=== PATIENT | male | born 1995 | race Caucasian/White ===

== ENCOUNTER 2019-03-03 16:30 | Emergency (ER) | payer OTHER ==
[~2019-03-03] VITALS: Ht 193 cm; Wt 112.2 kg
[2019-03-03 17:20] LABS: BASO % 0.6 % (0.0-1.0); EOS # 0.1 10^3/uL (0.0-0.5); EOS % 2.8 % (0.0-3.0); HEMATOCRIT 41.4 % (42.0-52.0); HEMOGLOBIN 14.5 g/dl (13.5-17.5); LYMPH # 1.9 10^3/uL (1.5-5.0); LYMPH % 37.6 % (24.0-44.0); MEAN CORPUSCULAR HEMOGLOBIN 32.6 pg (27.0-33.0); MONO # 0.4 10^3/uL (0.0-0.8); MONO % 7.1 % (0.0-5.0); NEUTROPHILS # 2.5 10^3/uL (1.5-8.5); NEUTROPHILS % 51.7 % (36.0-66.0); PLATELET COUNT, AUTOMATED 208 10^3/uL (150-450); RED BLOOD COUNT 4.45 10^6/uL (4.30-6.10); WHITE BLOOD COUNT 4.9 10^3/uL (4.0-10.0)
--- NOTE | 2019-03-03 17:54 | REP ---
HISTORY: Chest pain. COMPARISON: None. FINDINGS: The superior mediastinal structures are midline. The cardiac silhouette is unremarkable in size, shape and position. The diaphragmatic surfaces of the lungs are regular and the costophrenic angles are clear. The pulmonary shell are clear. The imaged osseous structures are intact. IMPRESSION: There is no acute cardiopulmonary disease. Electronically Signed by Yoel Ahn DO 03/03/2019 06:16 P
[2019-03-03 17:55] LABS: ALBUMIN 4.1 GM/DL (3.2-5.2); ALT/SGPT 32 U/L (12-78); BILIRUBIN,DIRECT 0.1 MG/DL (0.0-0.2); BILIRUBIN,TOTAL 0.5 MG/DL (0.2-1.0); BLOOD UREA NITROGEN 13 MG/DL (7-18); CARBON DIOXIDE LEVEL 28 MEQ/L (21-32); CHLORIDE LEVEL 106 MEQ/L (98-107); CK-MB VALUE MASS < 1.0 NG/ML (<3.6); CPK CREATINE PHOSPHOKINASE 74 U/L (39-308); CREATININE FOR GFR 1.03 MG/DL (0.70-1.30); GLOMERULAR FILTRATION RATE > 60.0 (>60); GLUCOSE, FASTING 83 MG/DL (70-100); LIPASE 69 U/L (73-393); MB/CK RELATIVE INDEX 1.35 (< OR =4); POTASSIUM SERUM 4.5 MEQ/L (3.5-5.1); SODIUM LEVEL 141 MEQ/L (136-145); TOTAL PROTEIN 6.7 GM/DL (6.4-8.2); TROPONIN I < 0.02 NG/ML (< 0.10); URIC ACID 7.1 MG/DL (3.5-7.2)
[2019-03-03 18:00] LABS: ERYTHROCYTE SEDIMENTATION RATE 3 mm/hr (0-15)
[2019-03-03 19:15] VITALS: BP 131/73
--- NOTE | 2019-03-04 05:52 | ECGEPIP ---
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
== END 2019-03-03 19:36 | disposition home or self-care (01) ==
LOC: M ED 16:30
DX: R07.89 Other chest pain (principal)

== ENCOUNTER 2019-05-16 12:51 | Emergency (ER) | payer OTHER ==
[~2019-05-16] VITALS: Ht 188 cm; Wt 115.6 kg
--- NOTE | 2019-05-16 14:58 | REP ---
CHEST, TWO VIEWS: There is no evidence of acute infiltrate. No pleural effusion is seen. The heart is normal in size. The mediastinal silhouette is unremarkable. The visualized osseous structures are intact. IMPRESSION: No acute pulmonary disease. Electronically Signed by Anuel Olivier MD 05/16/2019 03:01 P
[2019-05-16 15:04] LABS: BASO % 0.6 % (0.0-1.0); EOS # 0.1 10^3/uL (0.0-0.5); EOS % 1.9 % (0.0-3.0); HEMATOCRIT 48.3 % (42.0-52.0); HEMOGLOBIN 16.4 g/dl (13.5-17.5); LYMPH # 1.7 10^3/uL (1.5-5.0); LYMPH % 35.1 % (24.0-44.0); MEAN CORPUSCULAR HEMOGLOBIN 31.6 pg (27.0-33.0); MEAN CORPUSCULAR VOLUME 93.1 fl (80.0-96.0); MONO # 0.3 10^3/uL (0.0-0.8); MONO % 6.5 % (0.0-5.0); NEUTROPHILS # 2.7 10^3/uL (1.5-8.5); NEUTROPHILS % 55.7 % (36.0-66.0); PLATELET COUNT, AUTOMATED 216 10^3/uL (150-450); RED BLOOD COUNT 5.19 10^6/uL (4.30-6.10); WHITE BLOOD COUNT 4.8 10^3/uL (4.0-10.0)
[2019-05-16 15:14] LABS: BLOOD UREA NITROGEN 10 MG/DL (7-18); CALCIUM LEVEL 9.3 MG/DL (8.5-10.1); CARBON DIOXIDE LEVEL 28 MEQ/L (21-32); CHLORIDE LEVEL 107 MEQ/L (98-107); CK-MB VALUE MASS < 1.0 NG/ML (<3.6); CPK CREATINE PHOSPHOKINASE 222 U/L (39-308); CREATININE FOR GFR 0.87 MG/DL (0.70-1.30); GLOMERULAR FILTRATION RATE > 60.0 (>60); GLUCOSE, FASTING 92 MG/DL (70-100); MAGNESIUM LEVEL 2.2 MG/DL (1.8-2.4); MB/CK RELATIVE INDEX 0.45 (< OR =4); POTASSIUM SERUM 4.7 MEQ/L (3.5-5.1); SODIUM LEVEL 141 MEQ/L (136-145); TROPONIN I < 0.02 NG/ML (< 0.10); URIC ACID 6.1 MG/DL (3.5-7.2)
[2019-05-16] MEDS ORDERED: ASPIRIN 81 MG CHEW TABLET PO ONE (15:15)
[2019-05-16] MEDS ORDERED: MORPHINE 4 MG/ML 1ML VIAL/SYRINGE (J2270) IV ONE (15:15)
[2019-05-16 15:27] LABS: ERYTHROCYTE SEDIMENTATION RATE 1 mm/hr (0-15)
[2019-05-16] MEDS ORDERED: ISOVUE-370 76% 100ML VIAL (Q9967) As Ordered ONE (17:21)
--- NOTE | 2019-05-16 17:47 | REPVR ---
PROCEDURE INFORMATION: Exam: CT Angiography Chest With Contrast Exam date and time: 05/16/2019 5:37 PM Age: 23 years old Clinical history: Chest pain; Additional info: Chest pain, central TECHNIQUE: Imaging protocol: Computed tomographic angiography of the chest with intravenous contrast. 3D rendering: MIP reconstructed images were created and reviewed. Radiation optimization: All CT scans at this facility use at least one of these dose optimization techniques: automated exposure control; mA and/or kV adjustment per patient size (includes targeted exams where dose is matched to clinical indication); or iterative reconstruction. Contrast material: ISOVUE 370; Contrast volume: 75 ml; Contrast route: IV; COMPARISON: CR Chest, 2 view PA, Lat 05/16/2019 2:28 PM FINDINGS: Pulmonary arteries: Normal. No pulmonary emboli. Aorta: Unremarkable. No aortic aneurysm. No aortic dissection. Lungs: Unremarkable. No consolidation. No masses. Pleural space: Unremarkable. No pneumothorax. No pleural effusion. Heart: Unremarkable. No cardiomegaly. No pericardial effusion. Lymph nodes: Unremarkable. No enlarged lymph nodes. Bones/joints: Unremarkable. No acute fracture. Soft tissues: Unremarkable. IMPRESSION: No acute findings. Electronically signed by: Sreekanth Juárez On 05/16/2019 17:47:20 PM
[2019-05-16 19:06] LABS: CK-MB VALUE MASS < 1.0 NG/ML (<3.6); CPK CREATINE PHOSPHOKINASE 170 U/L (39-308); MB/CK RELATIVE INDEX 0.59 (< OR =4); TROPONIN I < 0.02 NG/ML (< 0.10)
[2019-05-16] MEDS ORDERED: COLC1TAB13 PO (19:59)
[2019-05-16] MEDS ORDERED: IBUP-1022 PO (19:59)
[2019-05-16 20:07] VITALS: BP 125/86
--- NOTE | 2019-05-17 08:49 | ECGEPIP ---
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
--- NOTE | 2019-05-17 08:53 | ECGEPIP ---
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 Order Number: [id number] Reading MD: Husam Mejia Measurements Intervals [place] Rate: 52 P: 3 [place]: 172 QRS: 11 QRSD: 123 T: 7 QT: 403 QTc: 376 Interpretive Statements SINUS BRADYCARDIA MODERATE INTRAVENTRICULAR CONDUCTION DELAY BENIGN EARLY REPOLARIZATION SIMILAR TO PRIOR ON SAME DATE Electronically Signed on 05-17-2019 8:53:17 EST by Husam Mejia
[2019-05-17 14:07] LABS: ANTI DOUBLE STRAND-DNA AB 3 IU/mL (0-9); ANTINUCLEAR ANTIBODIES DIRECT Positive (Negative); RNP ANTIBODIES <0.2 AI (0.0-0.9); SJOGREN'S ANTI SS-A <0.2 AI (0.0-0.9); SJOGREN'S ANTI SS-B <0.2 AI (0.0-0.9); SMITH ANTIBODIES <0.2 AI (0.0-0.9)
== END 2019-05-16 20:26 | disposition home or self-care (01) ==
LOC: M ED 12:51
DX: R07.89 Other chest pain (principal); Z86.79 Personal history of other diseases of the circulatory system
CPT/HCPCS: 36415; 71046; 71275; 80048; 82550; 82553; 83735; 84484; 84550; 85025; 85652; 86038; 86140; 93005; 93041; 96374; 99285; J2270; Q9967

== ENCOUNTER 2019-07-05 10:26 | Emergency (ER) | payer OTHER ==
[~2019-07-05] VITALS: Ht 190.5 cm; Wt 113.6 kg
[~2019-07-05 10:26] MED LIST: COLC1TAB13 PO; IBUP-1022 PO
[2019-07-05 11:05] LABS: BASO % 0.5 % (0.0-1.0); EOS # 0.2 10^3/uL (0.0-0.5); EOS % 4.4 % (0.0-3.0); HEMOGLOBIN 14.4 g/dl (13.5-17.5); LYMPH # 1.8 10^3/uL (1.5-5.0); LYMPH % 42.9 % (24.0-44.0); MEAN CORPUSCULAR HEMOGLOBIN 32.4 pg (27.0-33.0); MEAN CORPUSCULAR HGB CONC 35.1 g/dl (32.0-36.5); MEAN CORPUSCULAR VOLUME 92.1 fl (80.0-96.0); MONO # 0.3 10^3/uL (0.0-0.8); MONO % 7.8 % (0.0-5.0); NEUTROPHILS # 1.8 10^3/uL (1.5-8.5); NEUTROPHILS % 44.2 % (36.0-66.0); PLATELET COUNT, AUTOMATED 183 10^3/uL (150-450); RED BLOOD COUNT 4.45 10^6/uL (4.30-6.10); WHITE BLOOD COUNT 4.1 10^3/uL (4.0-10.0)
[2019-07-05 11:17] LABS: INR 1.05; PARTIAL THROMBOPLASTIN TIME 29.1 SECONDS (25.0-38.4); PROTHROMBIN TIME 13.4 SECONDS (11.8-14.0)
--- NOTE | 2019-07-05 11:19 | REP ---
Portable chest x-ray: Single view. History: Chest pain. Comparison study: May 16, 2019. Findings: Monitoring electrodes are seen. The lungs are well inflated and clear. The pleural angles are sharp. Heart size is normal. Pulmonary vasculature is not increased. No significant bony abnormality is seen. Impression: No acute disease. Electronically Signed by Malachi Dominique MD 07/05/2019 11:11 A
[2019-07-05 11:36] LABS: ALT/SGPT 38 U/L (12-78); BILIRUBIN,DIRECT 0.1 MG/DL (0.0-0.2); BILIRUBIN,TOTAL 0.6 MG/DL (0.2-1.0); BLOOD UREA NITROGEN 12 MG/DL (7-18); CALCIUM LEVEL 8.6 MG/DL (8.5-10.1); CARBON DIOXIDE LEVEL 25 MEQ/L (21-32); CHLORIDE LEVEL 110 MEQ/L (98-107); CK-MB VALUE MASS < 1.0 NG/ML (<3.6); CPK CREATINE PHOSPHOKINASE 51 U/L (39-308); CREATININE FOR GFR 0.84 MG/DL (0.70-1.30); FREE T4 0.94 NG/DL (0.76-1.46); GLOMERULAR FILTRATION RATE > 60.0 (>60); GLUCOSE, FASTING 99 MG/DL (70-100); LIPASE 68 U/L (73-393); MB/CK RELATIVE INDEX 1.96 (< OR =4); SODIUM LEVEL 142 MEQ/L (136-145); TOTAL PROTEIN 6.3 GM/DL (6.4-8.2); TROPONIN I < 0.02 NG/ML (< 0.10)
[2019-07-05 11:43] LABS: D-DIMER QUANT < 270 ng/ml (<500)
[2019-07-05] MEDS ORDERED: KETOROLAC 30 MG/ML VIAL (J1885) IV ONE (12:45)
[2019-07-05] MEDS ORDERED: GI COCKTAIL 50ML BTL(HYOSCYAMINE/MAALOX/LIDOCAINE VISCOUS)(1:3:1) PO ONE (14:45)
[2019-07-05] MEDS ORDERED: PERCOCET 5MG/325MG TAB PO ONE (14:45)
[2019-07-05 15:00] LABS: C REACTIVE PROTEIN QUANTITATIV < 0.30 MG/DL (0.00-0.30)
[2019-07-05 15:20] LABS: ERYTHROCYTE SEDIMENTATION RATE 4 mm/hr (0-15)
[2019-07-05 15:32] LABS: CK-MB VALUE MASS < 1.0 NG/ML (<3.6); CPK CREATINE PHOSPHOKINASE 47 U/L (39-308); MB/CK RELATIVE INDEX 2.13 (< OR =4); TROPONIN I < 0.02 NG/ML (< 0.10)
[2019-07-05] MEDS ORDERED: SUCR1TA PO (17:16)
[2019-07-05] MEDS ORDERED: OMEP40CA97 PO (17:16)
[2019-07-05 17:30] VITALS: BP 133/81
--- NOTE | 2019-07-05 18:22 | ECGEPIP ---
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
--- NOTE | 2019-07-05 18:26 | ECGEPIP ---
[facility] - ED Test Date: 2019-07-05 Pat Name: KARLEE GONCALVES Department: Room: - Gender: Male Chronic Care Nurse: STEVEN : 1995 Requested By: TRUONG Boucher Order Number: [id number] Reading MD: Freya Vicente Measurements Intervals [place] Rate: 47 P: 11 [place]: 176 QRS: 28 QRSD: 121 T: 25 QT: 429 QTc: 380 Interpretive Statements SINUS BRADYCARDIA MODERATE INTRAVENTRICULAR CONDUCTION DELAY EARLY REPOLARIZATION SIMILAR 07/05/19 10:35 Electronically Signed on 07-05-2019 18:25:58 EST by Freya Vicente
== END 2019-07-05 17:39 | disposition home or self-care (01) ==
LOC: M ED 10:26
DX: R07.89 Other chest pain (principal); Z79.899 Other long term (current) drug therapy
CPT/HCPCS: 71045; 80048; 80076; 82550; 82553; 83690; 84439; 84443; 84484; 85025; 85379; 85610; 85652; 85730; 86140; 87040; 93005; 93041; 94760; 96374; 99285; J1885

== ENCOUNTER → 2020-05-08 | Outpatient (CLI) | payer OTHER ==
[~2020-05-08] MED LIST changes: +OMEP40CA97 PO; +SUCR1TA PO
--- NOTE | 2020-05-13 14:48 | ECHO ---
DATE OF PROCEDURE: 05/08/2020 Age: 24 Gender: Male Height: 76 inches Weight: 270 pounds Body surface area: 2.52 m2 PATIENT LOCATION: Outpatient. REFERRING PHYSICIAN: Elver Medina MD INDICATION: Bradycardia. MEASUREMENTS: 2D Measurements: RV 4.2 cm LV 5.5 cm Septum 1.0 cm Posterior wall 1.0 cm Aortic Root 3.0 cm LA 4.0 cm LVEF 65% Doppler Measurements: AV 1.23 msec LVOT 0.96 msec LVOT diameter 2.0 cm MV-E 115, A 38, E/A ratio 3.0 Early mitral deceleration time 180 msec E prime medial 7.5, A prime medial 5.5, E prime lateral 10.8 Average E/E prime ratio 12.6/PCWP 17.5 mmHg PV 0.8 msec Pulmonary artery acceleration time 140 msec RVSP 30 mmHg IVC 1.9 cm COMMENTS: Sinus bradycardia without intraventricular conduction disturbance. M-mode and two-dimensional echocardiography was performed with pulse, continuous wave, color flow, and tissue Doppler studies. Normal left ventricular size, wall thickness, and wall motion. Left atrial size upper limits of normal with currently normal Doppler assessment of left ventricular (LV) diastolic function and estimated mean left atrial pressure. Normal right heart chamber sizes and wall motion and estimated pulmonary arterial pressure. Normal inferior vena cava (IVC) size and collapse against an elevated central venous pressure. Normal aortic dimensions. Normal appearing and functioning valvular structures with very mild mitral insufficiency (physiologic). Very mild tricuspid insufficiency (physiologic). No apparent intracardiac mass or pericardial effusion. MTDD
== END ==
LOC: M CARPUL 10:38
PROVIDERS: ATTEND Internal Medicine
DX: R00.1 Bradycardia, unspecified (principal)